=== PATIENT | female | born 1985 | race American Indian/Alaskan Native ===

== ENCOUNTER 2016-09-19 12:21 | Emergency (ER) | payer OTHER, MEDICAID ==
[2016-09-19 14:01] LABS: RBC URINE 2 /hpf (0-3); URINE BILIRUBIN NEGATIVE (NEGATIVE); URINE BLOOD NEGATIVE (NEGATIVE); URINE COLOR Yellow (YELLOW); URINE GLUCOSE (UA) NORMAL (Normal); URINE KETONE NEGATIVE (NEGATIVE); URINE LEUKOCYTE ESTERASE NEG Leu/uL (Negative); URINE PROTEIN NEGATIVE (NEGATIVE); URINE UROBILINOGEN NORMAL mg/dL (0.2-1.0); WBC URINE 1 /hpf (0-5)
[2016-09-19 15:03] VITALS: BP 108/69; PULSE 60; RESP 20; TEMP 98.1; O2SAT 99
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
== END 2016-09-19 15:30 | disposition home or self-care (01) ==
LOC: C.ER 12:21
DX: S00.83XA Contusion of other part of head, initial encounter (principal); S80.02XA Contusion of left knee, initial encounter; V43.52XA Car driver injured in collision with other type car in traffic accident, initial encounter; Y92.410 Unspecified street and highway as the place of occurrence of the external cause

== ENCOUNTER 2016-10-05 14:00 | Emergency (ER) | payer MEDICAID, OTHER ==
[2016-10-05] MEDS ORDERED: Naproxen 550 mg Tab PO STA (14:41)
[2016-10-05 14:55] VITALS: BP 107/69; PULSE 76; RESP 18; TEMP 98.1; O2SAT 99
--- NOTE | 2016-10-05 15:13 | C.PDOC ---
History Of Present Illness 30 y/o female presents to ED with complaints of right shoulder and clavicle pain for 1 week after falling and landing on right posterior shoulder. Patient reports pain worsens with movement of right shoulder. She denies LOC/head injury, visual changes, sensory changes, rash, fever. Time Seen by Provider: 10/05/16 14:19 Chief Complaint (Nursing): Upper Extremity Problem/Injury History Per: Patient History/Exam Limitations: no limitations Onset/Duration Of Symptoms: Days Current Symptoms Are (Timing): Still Present Quality: "Pain" Severity: Mild Exacerbating Factor(s): Movement Past Medical History Reviewed: Historical Data, Nursing Documentation, Vital Signs Vital Signs: Last Vital Signs Temp 98.1 F 10/05/16 14:52 Pulse 76 10/05/16 14:52 Resp 18 10/05/16 14:52 BP 107/69 10/05/16 14:52 Pulse Ox 99 10/05/16 15:19 - Medical History PMH: Back Problems, Cardia Arrhythmia (Murmur) Family History: States: No Known Family Hx - Social History Hx Tobacco Use: No Hx Alcohol Use: Yes Hx Substance Use: No - Immunization History Hx Tetanus Toxoid Vaccination: No Hx Influenza Vaccination: No Hx Pneumococcal Vaccination: No Review Of Systems Except As Marked, All Systems Reviewed And Found Negative. Constitutional: Negative for: Fever, Chills Eyes: Negative for: Vision Change Cardiovascular: Negative for: Chest Pain Respiratory: Negative for: Cough, Shortness of Breath Gastrointestinal: Negative for: Nausea, Vomiting, Abdominal Pain Musculoskeletal: Positive for: Shoulder Pain. Negative for: Neck Pain, Back Pain, Leg Pain Skin: Negative for: Rash Neurological: Negative for: Weakness, Numbness, Headache, Dizziness Physical Exam - Physical Exam Appears: Well, Non-toxic, No Acute Distress Skin: Normal Color, Warm, Dry, No Rash Head: Normacephalic Eye(s): bilateral: Normal Inspection Oral Mucosa: Moist Cardiovascular: Rhythm Regular Respiratory: Normal Breath Sounds, No Rales, No Rhonchi, No Wheezing Extremity: Tenderness (Mild tenderness to right mid-posterior scapula ), Capillary Refill (<2 seconds all digits ), No Deformity, Other (clavicle non tender bilaterally, forearms and humeri B/L nontender) Extremity: Bilateral: Normal ROM Pulses: Left Radial: Normal, Right Radial: Normal Neurological/Psych: Oriented x3, Normal Motor, Normal Sensation Gait: Steady ED Course And Treatment O2 Sat by Pulse Oximetry: 99 (RA) Pulse Ox Interpretation: Normal - Other Rad right clavicle Xray X-Ray: Interpreted by Me, Viewed By Me (no fractures/dislocations) right shoulder Xray X-Ray: Interpreted by Me, Viewed By Me (no fractures/dislocations) Progress Note: Patient given PO Naprosyn. Xrays of shoulder and clavicle ordered and reviewed. Reevaluation Time: 15:50 Reassessment Condition: Improved (Patient reassessed, is resting comfortably and states pain has improved. Xrays (-) for fracture. Patient placed in shoulder sling and instructed to follow up with orthopedics within 1 week. She understands she should return to ED if symptoms worsen.) Disposition Counseled Patient/Family Regarding: Diagnosis, Need For Followup, Rx Given - Disposition Referrals: [facility] [place] [facility] [Outside] [facility] [place] [Outside] Uli Roldan III, MD [Staff Provider] - Disposition: HOME/ ROUTINE Disposition Time: 15:50 Condition: STABLE Additional Instructions: FOLLOW UP WITH ORTHOPEDICS WITHIN 1 WEEK USE PAIN MEDICATION NEEDED RETURN TO ER IF SYMPTOMS WORSEN Prescriptions: Cyclobenzaprine [Cyclobenzaprine HCl] 10 mg PO BID PRN #12 tab PRN Reason: pain/muscle Hydrocodone/Acetaminophen [Hydrocodon-Acetaminophen 5-325] 1 each PO Q6 PRN #15 tablet PRN Reason: Pain, Moderate (4-7) Naproxen [Naprosyn Tab] 375 mg PO BID PRN #20 tab PRN Reason: pain Instructions: Shoulder Sprain (ED) Forms: [employer] (Urdu) Print Language: BANGLADESHI - POA Present On Arrival: None - Clinical Impression Clinical Impression: Sprain of right shoulder - Scribe Statement The provider has reviewed the documentation as recorded by the Levar Love All medical record entries made by the Levar were at my direction and personally dictated by me. I have reviewed the chart and agree that the record accurately reflects my personal performance of the history, physical exam, medical decision making, and the department course for this patient. I have also personally directed, reviewed, and agree with the discharge instructions and disposition.
--- NOTE | 2016-10-05 15:15 | C.PDOC ---
Time Seen by Provider: 10/05/16 14:19 Chief Complaint (Nursing): Upper Extremity Problem/Injury Past Medical History Vital Signs: Last Vital Signs Temp 98.1 F 10/05/16 14:52 Pulse 76 10/05/16 14:52 Resp 18 10/05/16 14:52 BP 107/69 10/05/16 14:52 Pulse Ox 99 10/05/16 14:52 - Medical History PMH: Back Problems, Cardia Arrhythmia (Murmur) Denies: HIV, Seizures, Sexually Transmitted Disease Family History: States: Unknown Family Hx - Social History Hx Tobacco Use: No Hx Alcohol Use: Yes Hx Substance Use: No - Immunization History Hx Tetanus Toxoid Vaccination: No Hx Influenza Vaccination: No Hx Pneumococcal Vaccination: No ED Course And Treatment O2 Sat by Pulse Oximetry: 99 Disposition Counseled Patient/Family Regarding: Studies Performed, Diagnosis, Need For Followup, Rx Given - Disposition Referrals: [facility] [Outside] [facility] [Outside] Uli Roldan III, MD [Staff Provider] - Disposition: HOME/ ROUTINE Disposition Time: 15:15 Condition: STABLE Additional Instructions: FOLLOW UP WITH ORTHOPEDICS WITHIN 1 WEEK USE PAIN MEDICATION NEEDED RETURN TO ER IF SYMPTOMS WORSEN Prescriptions: Cyclobenzaprine [Cyclobenzaprine HCl] 10 mg PO BID PRN #12 tab PRN Reason: pain/muscle Hydrocodone/Acetaminophen [Hydrocodon-Acetaminophen 5-325] 1 each PO Q6 PRN #15 tablet PRN Reason: Pain, Moderate (4-7) Naproxen [Naprosyn Tab] 375 mg PO BID PRN #20 tab PRN Reason: pain Instructions: Shoulder Sprain (ED) Forms: [employer] (Zimbabwean) Print Language: SINHALA - POA Present On Arrival: Falls Or Trauma - Clinical Impression Clinical Impression: Sprain of right shoulder
[2016-10-05] MEDS ORDERED: Naproxen 550 mg Tab PO ONE (15:16)
--- NOTE | 2016-10-05 16:11 | RAD ---
PROCEDURE: Radiographs of the right shoulder Radiographs of the right clavicle HISTORY: right shoulder pain, right clavicle pain COMPARISON: None available. FINDINGS: BONES: No acute displaced fracture. The distal clavicle and underlying ribs appear intact. JOINTS: No acute dislocation. AC joint appears slightly widened measuring approximately 10 mm. SOFT TISSUES: Soft tissues appear unremarkable. No evidence of radiopaque foreign body. IMPRESSION: AC joint appears slightly widened measuring approximately 10 mm. No acute displaced fracture identified. If symptoms persist or if there is continued clinical concern, x-ray follow-up in 7-10 days should be considered.
== END 2016-10-05 15:59 | disposition home or self-care (01) ==
LOC: C.ER 14:00
DX: S43.401A Unspecified sprain of right shoulder joint, initial encounter (principal); W19.XXXA Unspecified fall, initial encounter

== ENCOUNTER 2018-01-08 10:43 | Emergency (ER) | payer OTHER, MEDICAID ==
[2018-01-08 10:59] VITALS: BP 106/65; PULSE 88; RESP 18; TEMP 98.2; O2SAT 100
--- NOTE | 2018-01-08 11:19 | C.PDOC ---
History Of Present Illness 32 years old female presents to ED for complaints of left foot pain that began on after she was playing dodge ball and twisted her foot and fell.Denies hitting head, loc, neck pain. Patient also reports right foot rash which has improved. Denies ankle pain, other injuries or trauma, or any other physical complaints. Time Seen by Provider: 01/08/18 11:01 Chief Complaint (Nursing): Lower Extremity Problem/Injury History Per: Patient History/Exam Limitations: no limitations Onset/Duration Of Symptoms: Days (3), Persistent Recent travel outside of the [place]: No - Ankle/Foot Description Of Injury: Fell, Twisted Past Medical History Reviewed: Historical Data, Nursing Documentation, Vital Signs Vital Signs: Last Vital Signs Temp 98.2 F 01/08/18 10:56 Pulse 88 01/08/18 10:56 Resp 18 01/08/18 10:56 BP 106/65 01/08/18 10:56 Pulse Ox 100 01/08/18 10:56 - Medical History PMH: Back Problems, Cardia Arrhythmia (Murmur) Surgical History: No Surg Hx Family History: States: Unknown Family Hx - Social History Hx Tobacco Use: No Hx Alcohol Use: Yes Hx Substance Use: No - Immunization History Hx Tetanus Toxoid Vaccination: No Hx Influenza Vaccination: No Hx Pneumococcal Vaccination: No Review Of Systems Constitutional: Negative for: Fever, Chills Gastrointestinal: Negative for: Nausea, Vomiting, Diarrhea Musculoskeletal: Positive for: Foot Pain (Left Foot). Negative for: Leg Pain Skin: Positive for: Rash (Right foot) Neurological: Negative for: Weakness, Numbness Physical Exam - Physical Exam Appears: Non-toxic, No Acute Distress Skin: Warm, Dry, Rash (Right distal dorsal Foot with Eczematous/Erythematous patches), Ecchymosis (Large hematoma/ ecchymosis or left foot. ) Head: Atraumatic, Normacephalic Eye(s): bilateral: Normal Inspection, PERRL, EOMI Oral Mucosa: Moist Neck: Normal ROM, Supple Chest: Symmetrical, No Tenderness Cardiovascular: Rhythm Regular Respiratory: Normal Breath Sounds, No Rales, No Rhonchi, No Wheezing Back: Normal Inspection Extremity: Normal ROM, Other (Left lateral mid foot pain to palpation) Extremity: Bilateral: Normal ROM Pulses: Left Radial: Normal, Right Radial: Normal Neurological/Psych: Oriented x3, Normal Speech, Normal Motor, Normal Sensation Gait: Steady ED Course And Treatment O2 Sat by Pulse Oximetry: 100 (RA) Pulse Ox Interpretation: Normal - Other Rad Left Foot X-Ray X-Ray: Interpreted by Me, Viewed By Me Interpretation: Negative readings. Normal Findings. Medical Decision Making Medical Decision Making: Plan: * Motrin * Left Foot X-Ray Xray neg. Pt received post op shoe and crutches. Pt instructed in crutch walking. Disposition Counseled Patient/Family Regarding: Studies Performed, Diagnosis, Need For Followup, Rx Given - Disposition Referrals: Tenisha Cortez MD [Staff Provider] - Uli Roldan III, MD [Staff Provider] - Disposition: HOME/ ROUTINE Disposition Time: 11:21 Condition: GOOD Additional Instructions: FOLLOW UP WITH PMD AND ORTHOPAEDIST IN 1-2 DAYS FOR RE-EVALUATION AND OFFICIAL XRAY REPORT. IF SYMPTOMS GET WORSE OR ANY NEW CONCERNING SYMPTOMS DEVELOP RETURN TO ED. Prescriptions: Ibuprofen [Motrin Tab] 1 tab PO Q6H PRN #15 tab PRN Reason: Pain, Moderate (4-7) Triamcinolone 0.1% [Triamcinolone 0.1% Cream] 1 apful TP BID #60 g Instructions: Contusion (DC), Eczema (Atopic Dermatitis) (DC) Forms: [facility] (Lao), General Discharge Instructions - Clinical Impression Clinical Impression: Eczema, Foot contusion - PA / [employer] / Resident Statement MD/DO has reviewed & agrees with the documentation as recorded. - Scribe Statement The provider has reviewed the documentation as recorded by the Levar Connelly All medical record entries made by the Scribe were at my direction and personally dictated by me. I have reviewed the chart and agree that the record accurately reflects my personal performance of the history, physical exam, medical decision making, and the department course for this patient. I have also personally directed, reviewed, and agree with the discharge instructions and disposition.
--- NOTE | 2018-01-08 11:20 | C.PDOC ---
Time Seen by Provider: 01/08/18 11:01 Chief Complaint (Nursing): Lower Extremity Problem/Injury Past Medical History Vital Signs: Last Vital Signs Temp 98.2 F 01/08/18 10:56 Pulse 88 01/08/18 10:56 Resp 18 01/08/18 10:56 BP 106/65 01/08/18 10:56 Pulse Ox 100 01/08/18 10:56 - Medical History PMH: Back Problems, Cardia Arrhythmia (Murmur) Denies: HIV, Seizures, Sexually Transmitted Disease Family History: States: Unknown Family Hx - Social History Hx Tobacco Use: No Hx Alcohol Use: Yes Hx Substance Use: No - Immunization History Hx Tetanus Toxoid Vaccination: No Hx Influenza Vaccination: No Hx Pneumococcal Vaccination: No ED Course And Treatment O2 Sat by Pulse Oximetry: 100 Disposition - Disposition
--- NOTE | 2018-01-08 14:21 | RAD ---
Date of service: 01/08/2018 PROCEDURE: Left Foot Radiographs. HISTORY: rolled ankle COMPARISON: Comparison made with concurrent radiographs of the left ankle FINDINGS: BONES: Normal. No fracture. JOINTS: Minor hallux valgus deformity. There also appears to be some minimal degenerative changes along the lateral margin the 1st MTP joint. SOFT TISSUES: Normal. OTHER FINDINGS: None. IMPRESSION: No evidence of acute displaced fracture nor dislocation.
== END 2018-01-08 11:59 | disposition home or self-care (01) ==
LOC: C.ER 10:43
DX: S90.32XA Contusion of left foot, initial encounter (principal); W18.30XA Fall on same level, unspecified, initial encounter; Y93.69 Activity, other involving other sports and athletics played as a team or group; L30.9 Dermatitis, unspecified

== ENCOUNTER 2018-05-08 09:42 | Emergency (ER) | payer MEDICAID, OTHER ==
[2018-05-08 09:50] VITALS: BP 121/81; PULSE 74; RESP 16; TEMP 98; O2SAT 100
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
== END 2018-05-08 10:06 | disposition home or self-care (01) ==
LOC: C.ER 09:42
DX: F41.9 Anxiety disorder, unspecified (principal)

== ENCOUNTER 2018-05-20 14:47 | Emergency (ER) | payer MEDICAID ==
--- NOTE | 2018-05-20 15:05 | C.PDOC ---
History Of Present Illness 32 y/o female comes in complaining of left-sided flank pain for the past month, associated with dysuria and frequency. Patient denies any fever or chills. Denies any associated pain with movement or position. L FLANK PAIN X 1 MO. +DYSURIA FREQ. NO FEVER. NO ASSOC W MOVEMENT OR POSITION EXAM NONTOXIC NO CVAT BACK AROM WO DIFF GAIT WNL REMAINDER NEG Time Seen by Provider: 05/20/18 14:53 Chief Complaint (Nursing): Back Pain History Per: Patient History/Exam Limitations: no limitations Onset/Duration Of Symptoms: Days Current Symptoms Are (Timing): Still Present Past Medical History Reviewed: Historical Data, Nursing Documentation, Vital Signs Vital Signs: Last Vital Signs Temp 98.0 F 05/20/18 14:55 Pulse 87 05/20/18 14:55 Resp 16 05/20/18 14:55 BP 125/79 05/20/18 14:55 Pulse Ox 98 05/20/18 14:55 - Medical History PMH: Back Problems, Cardia Arrhythmia (Murmur) Denies: HIV, Seizures, Sexually Transmitted Disease Family History: States: No Known Family Hx - Social History Hx Tobacco Use: No Hx Alcohol Use: Yes Hx Substance Use: Yes - Immunization History Hx Tetanus Toxoid Vaccination: No Hx Influenza Vaccination: No Hx Pneumococcal Vaccination: No Review Of Systems Except As Marked, All Systems Reviewed And Found Negative. Constitutional: Negative for: Fever, Chills Gastrointestinal: Positive for: Abdominal Pain (Left-sided Flank Pain) Genitourinary: Positive for: Dysuria, Frequency Musculoskeletal: Negative for: Back Pain Physical Exam - Physical Exam Appears: Non-toxic, No Acute Distress Skin: Warm, Dry Head: Atraumatic, Normacephalic Eye(s): bilateral: Normal Inspection Oral Mucosa: Moist Neck: Supple Cardiovascular: Rhythm Regular, No Murmur Respiratory: Normal Breath Sounds, No Rales, No Rhonchi, No Wheezing Gastrointestinal/Abdominal: Soft, No Tenderness, No Guarding, No Rebound Back: No CVA Tenderness, Other (AROM without difficulty) Extremity: Bilateral: Atraumatic, Normal Color And Temperature Neurological/Psych: Oriented x3, Normal Speech Gait: Other (WNL) ED Course And Treatment - Laboratory Results Result Diagrams: 05/20/18 15:15 05/20/18 15:15 O2 Sat by Pulse Oximetry: 98 (RA) Pulse Ox Interpretation: Normal Medical Decision Making Medical Decision Making: Plan: --Labs --Urine culture --UA --POC urine --Toradol 30 mg IVP Disposition Counseled Patient/Family Regarding: Diagnosis, Need For Followup - Disposition Referrals: your,pmd [Other] Disposition: HOME/ ROUTINE Disposition Time: 16:44 Condition: IMPROVED Instructions: Low Back Pain (DC) Forms: [employer] (Romanian) - Clinical Impression Clinical Impression: Low back pain - Scribe Statement The provider has reviewed the documentation as recorded by the Levar Gamez Provider Attestation: All medical record entries made by the Levar were at my direction and personally dictated by me. I have reviewed the chart and agree that the record accurately reflects my personal performance of the history, physical exam, medical decision making, and the department course for this patient. I have also personally directed, reviewed, and agree with the discharge instructions and disposition.
[2018-05-20 15:17] LABS: HEMOGLOBIN 12.8 g/dL (11.0-16.0); MEAN CORPUSCULAR HEMOGLOBIN 31.6 pg (27.0-31.0); MEAN PLATELET VOLUME 8.5 fL (7.2-11.7); RBC 4.04 Mil/uL (3.80-5.20); RED CELL DISTRIBUTION WIDTH 12.4 % (11.5-14.5); WHITE BLOOD COUNT 9.3 K/uL (4.8-10.8)
[2018-05-20 15:18] LABS: MEAN CELL VOLUME 92.9 fL (81.0-99.0)
[2018-05-20 15:22] LABS: SQUAMOUS EPITHIAL 1 /hpf (0-5); URINE BACTERIA RARE (<OCC); URINE BILIRUBIN NEGATIVE (NEGATIVE); URINE BLOOD NEGATIVE (NEGATIVE); URINE CLARITY Clear (Clear); URINE COLOR Yellow (YELLOW); URINE GLUCOSE (UA) NORMAL (Normal); URINE LEUKOCYTE ESTERASE NEG Leu/uL (Negative); URINE PROTEIN NEGATIVE (NEGATIVE); URINE UROBILINOGEN NORMAL mg/dL (0.2-1.0)
[2018-05-20 15:38] LABS: BLOOD UREA NITROGEN 10 mg/dL (7-17); CALCIUM 9.9 mg/dl (8.6-10.4); GFR NON-AFRICAN AMERICAN > 60
--- NOTE | 2018-05-20 16:15 | CT ---
Date of service: 05/20/2018 PROCEDURE: CT Abdomen and Pelvis without intravenous contrast HISTORY: L FLANK PAIN COMPARISON: None. TECHNIQUE: Without contrast.. Contrast dose: 0 Radiation dose: Total exam DLP = 898.32 mGy-cm. This CT exam was performed using one or more of the following dose reduction techniques: Automated exposure control, adjustment of the mA and/or kV according to patient size, and/or use of iterative reconstruction technique. FINDINGS: LOWER THORAX: Unremarkable. LIVER: Unremarkable. No gross lesion or ductal dilatation. GALLBLADDER AND BILE DUCTS: Unremarkable. PANCREAS: Unremarkable. No gross lesion or ductal dilatation. SPLEEN: Unremarkable. ADRENALS: Unremarkable. No mass. KIDNEYS AND URETERS: Unremarkable. No hydronephrosis. No solid mass. No renal or ureteral calculus. VASCULATURE: Unremarkable. No aortic aneurysm. No aortic atherosclerotic calcification or mural plaque present. BOWEL: Mild sigmoid diverticulosis. No evidence of diverticulitis. No bowel obstruction. No other abnormal bowel loops. APPENDIX: Unremarkable. Normal appendix. PERITONEUM: Trace fluid in cul-de-sac. Very small umbilical hernia containing only mesenteric fat. LYMPH NODES: Unremarkable. No enlarged lymph nodes. BLADDER: Nondistended REPRODUCTIVE: Unremarkable uterus BONES: No acute fracture. OTHER FINDINGS: None. IMPRESSION: No acute abnormality. Sigmoid diverticulosis without evidence of diverticulitis. No evidence of urinary calculus or urinary tract obstruction.
[2018-05-20 16:49] VITALS: BP 97/61; PULSE 74; RESP 20; TEMP 97.7; O2SAT 100
== END 2018-05-20 16:58 | disposition home or self-care (01) ==
LOC: C.ER 14:47
DX: M54.5 Low back pain (principal)
CPT/HCPCS: 74176; 80048; 81001; 81025; 85027; 87086; 96374; 99284; J1885